=== PATIENT | female | born 1955 | race Caucasian/White ===

== ENCOUNTER 2023-01-06 08:00 | Outpatient (CLI) | payer MEDICARE | END 2023-01-06 23:59 | disposition home or self-care (01) | LOC: LAB 08:00 | PROVIDERS: ATTEND Physician Assistant | DX: L98.9 Disorder of the skin and subcutaneous tissue, unspecified (principal) | CPT/HCPCS: 87070; 87205 ==

== ENCOUNTER 2023-02-27 15:08 | Outpatient (CLI) | payer MEDICARE | END 2023-02-27 15:09 | disposition critical access hospital (66) | LOC: EMS 15:08 | DX: R42 Dizziness and giddiness (principal); R11.2 Nausea with vomiting, unspecified | CPT/HCPCS: A0425; A0429 ==

== ENCOUNTER 2023-02-27 15:48 | Emergency (ER) | payer MEDICARE ==
--- NOTE | 2023-02-27 16:09 | ED Physician Documentation ---
History of Present Illness - Stated complaint Stated Complaint: DIZZY - Chief complaint Chief Complaint: Ext Problem - Additonal information Additional information: 67-year-old female presents to the emergency department for evaluation of parrish carrillo. 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 The client had use the restroom so she took that opportunity to also urinate and when she stood up she felt very dizzy and felt as though the world was spinning. She did go to the restroom but felt off. She came back and completed the client encounter. Shortly thereafter she stood up again and began to feel dizzy and lightheaded. She Did have 1 episode of nausea and vomiting. No chest pain or shortness of air. No double vision. No tinnitus. Patient has no history of similar. Denies a history of hypertension or diabetes. Very infrequently smokes and uses cannabis. No known previous history of coronary artery disease or VA or stroke. Review of Systems Constitutional: denies: Fever, Myalgias, Fatigue Eyes: denies: Loss of vision (No double vision) Ears: denies: Loss of hearing, Ear pain, Drainage/discharge, Tinnitus/ringing Nose: reports: Reviewed and negative Cardiac: reports: Reviewed and negative Respiratory: reports: Reviewed and negative GI: reports: Nausea, Vomiting : reports: Reviewed and negative Skin: reports: Reviewed and negative Musculoskeletal: reports: Reviewed and negative PD ED PE NORMAL - General General: Alert and oriented X 3, No acute distress, Well developed/nourished - HEENT HEENT: Atraumatic, Moist mucous membranes, Pharynx benign - Neck Neck: Supple, no meningeal sign, No adenopathy, No JVD - Cardiac Cardiac: RRR, No murmur - Respiratory Respiratory: No respiratory distress, Clear bilaterally - Abdomen Abdomen: Normal bowel sounds, Soft - Back Back: No CVA TTP, No spinal TTP - Derm Derm: Normal color, Warm and dry, No rash - Extremities Extremities: No deformity, No tenderness to palpate, Normal ROM s pain - Neuro Neuro: Alert and oriented X 3, mission manager 2-12 intact, No motor deficit, No sensory deficit, Normal speech, Other (Normal finger-nose, Normal rapid alternating movements. Normal gait. Off balance with heel toe) Eye Opening: Spontaneous Motor: Obeys Commands Verbal: Oriented GCS Score: 15 Results - Vitals Vitals: Vital Signs - 24 hr 02/27/23 02/27/23 02/27/23 15:53 16:06 16:53 Heart Rate 60 Heart Rate [ 70 Sitting] Heart Rate [ 66 Standing] Heart Rate [ 68 Supine] Respiratory 16 Rate Blood Pressure 168/90 H Blood Pressure 161/75 H [Sitting] Blood Pressure 143/89 H [Standing] Blood Pressure 153/83 H [Supine] O2 Saturation 99 Oxygen O2 Source Room air - EKG (time done) 1609 EKG releavant findings:: EKG personally interpreted by author of this note. Relevant findings are: Rate: Rate (enter#) (62) Rhythm: NSR Renick: Other (IVCD) Intervals: Prolonged MN QRS: Poor R wave progression Ischemia: Normal ST segments Compare to prior EKG: Old EKG unavailable Computer interpretation: Agree with computer - Labs Labs: Laboratory Tests 02/27/23 02/27/23 02/27/23 16:15 16:15 16:15 WBC 4.7 L RBC 3.92 L Hgb 12.1 Hct 37.9 MCV 96.7 MCH 30.9 MCHC 31.9 L RDW 12.4 Plt Count 175 MPV 10.2 Neut # (Auto) 3.8 Lymph # (Auto) 0.6 L [place] # (Auto) 0.3 Eos # (Auto) 0.1 Baso # (Auto) 0.0 Absolute Nucleated RBC 0.00 Nucleated RBC % 0.0 PT 10.5 INR 0.9 Sodium 136 Potassium 4.1 Chloride 101 Carbon Dioxide 25 Anion Gap 10.0 BUN 17 Creatinine 0.7 Estimated GFR (MDRD) 84 L Glucose 111 H Calcium 9.1 Total Bilirubin 0.8 AST 26 ALT 12 Alkaline Phosphatase 59 Troponin I High Sens B-Natriuretic Peptide Total Protein 6.8 Albumin 4.1 Globulin 2.7 Albumin/Globulin Ratio 1.5 Lipase 38 02/27/23 02/27/23 16:15 16:15 WBC RBC Hgb Hct MCV MCH MCHC RDW Plt Count MPV Neut # (Auto) Lymph # (Auto) [place] # (Auto) Eos # (Auto) Baso # (Auto) Absolute Nucleated RBC Nucleated RBC % PT INR Sodium Potassium Chloride Carbon Dioxide Anion Gap BUN Creatinine Estimated GFR (MDRD) Glucose Calcium Total Bilirubin AST ALT Alkaline Phosphatase Troponin I High Sens 3.7 B-Natriuretic Peptide 109 H Total Protein Albumin Globulin Albumin/Globulin Ratio Lipase - Rads (name of study) cxr Relevant Findings:: Final report received (Mild diffuse interstitial prominence and suspected very small right pleural effusion may represent an infectious or inflammatory process though early pulmonary edema may have a similar appearance. No focal consolidation seen) angio head Relevant Findings:: Final report received (No CT evidence of acute intracranial abnormalities. No areas of abnormal contrast-enhancement. No hemodynamically significant stenosis or aneurysm is seen in the intracranial circulation) angio neck Relevant Findings:: Final report received (No hemodynamically significant stenosis is seen in bilateral neck arteries) PD Medical Decision Making - ED course Complexity details: reviewed results, re-evaluated patient, considered differential, d/w patient ED course: 67-year-old female who has no pertinent past medical history and takes no prescribed medications presents the emergency department for evaluation of vertigo. She first noticed it when she was completing a Zoom meeting with a client she got up to walk to the bathroom and felt off balance and dizzy. She had no chest pain or shortness of air. She completed the client meeting and shortly thereafter attempted to walk again but stated that she felt dizzy and off balance thus she presents here. On presentation to the emergency department she is alert and oriented. On vital signs I do note a modest hypertension with blood pressure 161/75. No hypoxia. EKG is sinus rhythm without arrhythmia or tacky arrhythmia A-fib noted. I did obtain screening labs that included CBC, PT/INR and electrolytes. Per my interpretation no acute worrisome abnormalities. A troponin was negative as well as a BNP which measured only at 109. Her EKG per my interpretation also showed no acute worrisome ischemic changes. Subsequently a CT angiogram of the head and neck was completed to evaluate for the possibility of vertebrobasilar insufficiency as a cause for the vertigo. CT imaging as interpreted by the radiologist also shows no worrisome stenosis, aneurysm or vertebrobasilar insufficiency. Clinically patient has a nonfocal neurological exam as well as a normal cerebellar exam A chest x-ray is interpreted by the radiologist suggested mild diffuse interstitial prominence and suspected very small right pleural effusion which could be infectious or inflammatory though pulmonary edema was not ruled out. Patient is without any respiratory findings. There is no dyspnea or hypoxia. Unremarkable cardiopulmonary auscultation. Given the negative BNP and lack of exertional symptoms I do not feel that this warrants treatment today as she does not have clinical findings of CHF or cough, fever leukocytosis to suggest pna. I am encouraging the patient to follow closely with her PCP for long-term restratification of cardiovascular health. We discussed the usual emergent return precautions which would include syncope, chest pain, shortness of air, leg swelling or any focal neuro signs. Departure - Departure Disposition: 01 Home, Self Care Clinical Impression: Dizzy Condition: Stable Record reviewed to determine appropriate education?: Yes Instructions: ED Vertigo Unspecified Comments: Brooke viramontes were seen today in the emergency department because you had some dizziness this afternoon while on a Zoom call. We did do screening labs in the emergency department that included a CBC, electrolytes troponin and a lab called BNP. These were all essentially normal. They show no findings to suggest infection or heart failure or heart attack. You do not have any worrisome anemia or electrolyte changes that could have accounted for your symptoms. We did do angiograms of your head and neck to look for aneurysm or stenosis of the arteries that could have contributed to your symptoms and the angiograms were essentially negative. On reevaluation your neurological exam remains normal. Important that you discuss this ED visit with your primary care doctor when you finally meet them. In the short-term if you develop any worsening symptoms such as chest pain, shortness of air, have slurred speech, facial droop or worsening dizziness please return to the ER for repeat evaluation.
[2023-02-27 16:24] LABS: BASOPHILS % (AUTO) 0.6 %; EOSINOPHILS # (AUTO) 0.1 10^3/uL (0.0-0.7); EOSINOPHILS % (AUTO) 1.1 %; HCT - HEMATOCRIT 37.9 % (37.0-47.0); HGB - HEMOGLOBIN 12.1 g/dL (12.0-16.0); LYMPHOCYTES # (AUTO) 0.6 10^3/uL (1.5-3.5); LYMPHOCYTES % (AUTO) 11.9 %; MEAN CORPUSCULAR HEMOGLOBIN 30.9 pg (27.0-31.0); MEAN CORPUSCULAR HGB CONC 31.9 g/dL (32.0-36.0); MEAN CORPUSCULAR VOLUME 96.7 fL (81.0-99.0); MEAN PLATELET VOLUME 10.2 fL (7.9-10.8); MONOCYTES # (AUTO) 0.3 10^3/uL (0.0-1.0); MONOCYTES % (AUTO) 5.9 %; NEUTROPHILS # (AUTO) 3.8 10^3/uL (1.5-6.6); NEUTROPHILS % (AUTO) 80.1 %; PLT - PLATELET COUNT 175 10^3/uL (130-450); RED BLOOD COUNT 3.92 10^6/uL (4.20-5.40); RED CELL DISTRIBUTION WIDTH 12.4 % (12.0-15.0); WHITE BLOOD COUNT 4.7 x10^3/uL (4.8-10.8)
[2023-02-27 16:32] LABS: INR 0.9 (0.8-1.2); PT - PROTHROMBIN TIME 10.5 secs (9.9-12.6)
[2023-02-27 16:35] LABS: ALBUMIN 4.1 g/dL (3.2-5.5); ALBUMIN/GLOBULIN RATIO 1.5 (1.0-2.2); BILIRUBIN,TOTAL 0.8 mg/dL (0.2-1.0); CALCIUM 9.1 mg/dL (8.5-10.3); CREATININE 0.7 mg/dL (0.4-1.0); POTASSIUM 4.1 mmol/L (3.5-5.0); TOTAL PROTEIN 6.8 g/dL (6.7-8.2)
--- NOTE | 2023-02-27 16:35 | XRAY Report ---
PROCEDURE: Chest 1 View X-Ray INDICATIONS: Chest Pain TECHNIQUE: One view of the chest was acquired. COMPARISON: None. FINDINGS: Surgical changes and devices: None. Lungs and pleura: Minimal diffuse interstitial prominence. Mild hazy opacity of the right costophren ic angle and minimal blunting. This may represent a very small pleural effusion. No pneumothorax. No focal consolidation. Mediastinum: Accounting for patient positioning/rotation, minimally prominent right perihilar/paratr acheal density is favored to represent vascular structures. Otherwise, cardiomediastinal contours and heart size are within normal limits. Bones and chest wall: No suspicious bony lesions. Overlying soft tissues appear unremarkable. IMPRESSION: Mild diffuse interstitial prominence and suspected very small right pleural effusion may represent an infectious or inflammatory process although early pulmonary edema may have a similar appearance. No focal consolidation seen. Reviewed by: Jean Pierre Berry MD on 02/27/2023 4:34 PM PDT Approved by: Jean Pierre Berry MD on 02/27/2023 4:34 PM PDT Station ID: [id number]
[2023-02-27] MEDS ORDERED: iohexoL-300 100 ML VIAL ONE (16:36)
--- OUTSIDE RECORDS SUMMARY | 2023-02-27 17:14 | EXTERNAL MEDICAL SUMMARY RPT | Continuity of Care Document ---
Author Name Unknown Address [address] [place] [address] Phone Organization [facility] Address [address] [place] [address] Phone Care Team Providers Care Architectural Job Captain Name Role Phone Unavailable Unavailable Unavailable Dariusz Bolton Md Unavailable Unavailable Allison PaSamantha, Omar Unavailable Unavailable Avery Ramirez, Camille Unavailable Unavailable Graham Patient Registrar, Tamera Unavailable Unavailable Jena Patient Registrar, Torrie Unavailable Unavailable Jena Patient Registrar, Torrie Unavailable Unavailable Juliane, Provider Unavailable Unavailable [place] Stone Mason, Tailynn Unavailable Unavailabl e Medications date description facility 2023-01-06 00:00 [facility]upirocin [facility] 2023-01-06 00:00 [facility]cin [facility] 2023-01-06 00:00 [facility]cin [facility] 2023-01-06 00[facility]00 [facility]cin [facility] 2023-01-06 00:00 [facility]cin [facility] 2023-01-06 00:00 [facility]cin [facility] 2023-01-06 00:00 [facility]cin [facility] 2023-01-06 00:00 doxycycline monohydrate [facility] 2023-01-06 00:00 doxycycline monohydrate [facility] 2023-01-06 00:00 doxycycline monohydrate [facility] 2023-01-06 00:00 doxycycline monohydrate [facility] 2023-01-06 00:00 doxycycline monohydrate [facility] 2023-01-06 00:00 doxycycline monohydrate [facility] 2023-01-06 00:00 doxycycline monohydrate [facility] 2023-01-06 00:00 [facility]irocin [facility] 2023-01-06 00:00 [facility]cin [facility] 2023-01-06 00:00 [facility]cin [facility] 2023-01-06 00:00 [facility]cin [facility] 2023-01-06 00:00 [facility]upirocin [facility] 2023-01-06 00:00 [facility]upirocin [facility] 2023-01-06 00:00 [facility]cin [facility] 2023-01-20 00:00 sulfamethoxazole-trimethoprim [facility] 2023-01-20 00:00 sulfamethoxazole-trimethoprim [facility] 2023-01-20 00:00 sulfamethoxazole-trimethoprim [facility] 2023-01-06 00:00 doxycycline monohydrate [facility] 2023-01-06 00:00 doxycycline monohydrate [facility] 2023-01-06 00:00 doxycycline monohydrate [facility] 2023-01-06 00:00 doxycycline monohydrate [facility] 2023-01-06 00:00 doxycycline monohydrate [facility] 2023-01-06 00:00 doxycycline monohydrate [facility] 2023-01-06 00:00 doxycycline monohydrate [facility] 2023-01-20 00:00 sulfamethoxazole-trimethoprim [facility] 2023-01-20 00:00 sulfamethoxazole-trimethoprim [facility] 2023-01-20 00:00 sulfamethoxazole-trimethoprim [facility] 2023-01-20 00:00 sulfamethoxazole-trimethoprim [facility] 2023-01-20 00:00 sulfamethoxazole-trimethoprim [facility] 2023-01-20 00:00 sulfamethoxazole-trimethoprim [facility] 2023-01-06 00:00 doxycycline monohydrate [facility] 2023-01-06 00:00 doxycycline monohydrate [facility] 2023-01-06 00:00 doxycycline monohydrate [facility] 2023-01-06 00:00 doxycycline monohydrate [facility] 2023-01-06 00:00 doxycycline monohydrate [facility] 2023-01-06 00:00 doxycycline monohydrate [facility] 2023-01-06 00:00 doxycycline monohydrate [facility] 2023-01-06 00:00 [facility]upirocin [facility] 2023-01-06 00:00 [facility]upirocin [facility] 2023-01-06 00:00 [facility]upirocin [facility] 2023-01-06 00:00 [facility]cin [facility] 2023-01-06 00:00 [facility]upirocin [facility] 2023-01-06 00:00 [facility]cin [facility] 2023-01-06 00:00 [facility]cin [facility] 2023-01-06 00:00 doxycycline monohydrate [facility] 2023-01-06 00:00 doxycycline monohydrate [facility] 2023-01-06 00:00 doxycycline monohydrate [facility] 2023-01-06 00:00 doxycycline monohydrate [facility] 2023-01-06 00:00 doxycycline monohydrate [facility] 2023-01-06 00:00 doxycycline monohydrate [facility] 2023-01-06 00:00 doxycycline monohydrate [facility] 2023-01-20 00:00 sulfamethoxazole-trimethoprim [facility] 2023-01-20 00:00 sulfamethoxazole-trimethoprim [facility] 2023-01-20 00:00 sulfamethoxazole-trimethoprim [facility] 2023-01-06 00:00 [facility]upirocin [facility] 2023-01-06 00:00 [facility]up[facility]cin [facility] 2023-01-06 00:00 [facility]up[facility]cin [facility] 2023-01-06 00:00 [facility]cin [facility] 2023-01-06 00:00 [facility] 2023-01-06 00:00 [facility]cin [facility] 2023-01-06 00:00 [facility]upirocin [facility] Problems date description facility 2023-01-06 00:00 No current problems or disability - unknown [facility] 2023-01-06 00:00 Unspecified disorder of skin and subcutaneous tissue [facility] 2023-01-06 00:00 Unspecified disorder of skin and subcutaneous tissue [facility] 2023-01-06 00:00 Unspecified disorder of skin and subcutaneous tissue [facility] 2023-01-06 00:00 Unspecified disorder of skin and subcutaneous tissue [facility] 2023-01-06 00:00 Unspecified disorder of skin and subcutaneous tissue [facility] 2023-01-06 00:00 Unspecified disorder of skin and subcutaneous tissue [facility] 2023-01-06 00:00 Unspecified disorder of skin and subcutaneous tissue [facility] 2023-01-06 00:00 Skin lesion [facility] 2023-01-06 00:00 Skin lesion [facility] 2023-01-06 00:00 Skin lesion [facility] 2023-01-06 00:00 Skin lesion [facility] 2023-01-06 00:00 Skin lesion [facility] 2023-01-06 00:00 Skin lesion [facility] 2023-01-06 00:00 Skin lesion [facility] 2023-01-06 00:00 Disorder of the skin and subcutaneous tissue, unspecified [facility] 2023-01-06 00:00 Disorder of the skin and subcutaneous tissue, unspecified [facility] 2023-01-06 00:00 Disorder of the skin and subcutaneous tissue, unspecified [facility] 2023-01-06 00:00 Disorder of the skin and subcutaneous tissue, unspecified [facility] 2023-01-06 00:00 Disorder of the skin and subcutaneous tissue, unspecified [facility] 2023-01-06 00:00 Disorder of the skin and subcutaneous tissue, unspecified [facility] 2023-01-06 00:00 Disorder of the skin and subcutaneous tissue, unspecified [facility] Procedures date description facility 2023-01-06 00:00 Visit Code Hold [facility] 2023-01-06 00:00 Visit Code Hold [facility] 2023-01-06 00:00 Visit Code Hold [facility] 2023-01-06 00:00 Visit Code Hold [facility] 2023-01-06 00:00 Visit Code Hold [facility] 2023-01-06 00:00 Visit Code Hold [facility] 2023-01-06 00:00 Visit Code Hold [facility] 2023-01-20 00:00 Visit Code Hold [facility] 2023-01-20 00:00 Visit Code Hold [facility] 2023-01-20 00:00 Visit Code Hold [facility] Social History date description facility 2023-01-06 00:00 Never smoker [facility] 2023-01-06 00:00 Never smoker [facility] 2023-01-06 00:00 Never smoker [facility] 2023-01-06 00:00 Never smoker [facility] 2023-01-06 00:00 Never smoker [facility] 2023-01-06 00:00 Never smoker [facility] 2023-01-06 00:00 Never smoker [facility] 2023-01-06 00:00 Unknown if ever smoked [facility] 2023-01-20 00:00 Never smoker [facility] 2023-01-20 00:00 Never smoker [facility] 2023-01-20 00:00 Never smoker [facility] Vital Signs date measurement value units 2023-01-06 00:00 BMI 30.67 kg/m2 2023-01-06 00:00 BP_diastolic 75 mmHg 2023-01-06 00:00 BP_systolic 130 mmHg 2023-01-06 00:00 heart_rate 60 /min 2023-01-06 00:00 height_metric 177.8 cm 2023-01-06 00:00 height_standard 70 in 2023-01-06 00:00 respiration_rate 14 /min 2023-01-06 00:00 temperature_metric 36.83 C 2023-01-06 00:00 temperature_standard 98.3 F 2023-01-06 00:00 weight_metric 96.62 kg 2023-01-06 00:00 weight_standard 213 lb 2023-01-20 00:00 BMI 30.67 kg/m2 2023-01-20 00:00 BP_diastolic 74 mmHg 2023-01-20 00:00 BP_systolic 125 mmHg 2023-01-20 00:00 heart_rate 68 /min 2023-01-20 00:00 height_metric 177.8 cm 2023-01-20 00:00 height_standard 70 in 2023-01-20 00:00 respiration_rate 16 /min 2023-01-20 00:00 temperature_metric 36.5 C 2023-01-20 00:00 temperature_standard 97.7 F 2023-01-20 00:00 weight_metric 96.62 kg 2023-01-20 00:00 weight_standard 213 lb
--- NOTE | 2023-02-27 17:47 | CT Report ---
PROCEDURE: ANGIO NECK W INDICATIONS: dizziness CONTRAST: 80mL Omni 300 TECHNIQUE: After the administration of intravenous contrast, 1.5 mm axial sections acquired from the aortic arch to the [place] of [place]. Coronal 3-D maximum intensity projection (MIP) and/or volume rendering ref ormats were then performed. For radiation dose reduction, the following was used: automated exposur e control, adjustment of mA and/or kV according to patient size. COMPARISON: None. FINDINGS: Image quality: Excellent. Carotid system: The great vessels demonstrate a conventional anatomy as they arise from the aortic a rch. The origins of the common carotid arteries appear patent. The common carotid arteries demonstr ate normal calibers and courses. The bifurcation regions appear normal bilaterally. The internal ca rotid arteries demonstrate normal caliber and course. Posterior circulation: The origins of the vertebral arteries appear patent. The more superior porti ons of the vertebral arteries demonstrate normal course and caliber. They join to form a normal appe aring basilar artery. Soft tissues: Visualized neck soft tissues demonstrate no suspicious abnormalities. The thyroid is normal in size and there are no incidental findings. Bones: No suspicious bony lesions. Visualized cervical spine appears normally aligned. IMPRESSION: 1. No hemodynamically significant stenosis is seen in bilateral neck arteries. The estimate of stenosis included in the report of the imaging study was calculated using the NASCET method CLINICAL RECOMMENDATION STATEMENTS: In patients <35 years with an ITN detected on CT, MRI, or extrathyroidal ultrasound, the Committee re commends further evaluation with dedicated thyroid ultrasound if the nodule is "e1 cm and has no susp icious imaging features, and if the patient has normal life expectancy. In patients "e35 years with an ITN detected on CT, MRI, or extrathyroidal ultrasound, the Committee r ecommends further evaluation with dedicated thyroid ultrasound if the nodule is "e1.5 cm and has no s uspicious imaging features, and if the patient has normal life expectancy. (ACR, 2014) Reviewed by: Hugo Lau MD on 02/27/2023 4:46 PM AKDT Approved by: Hugo Lau MD on 02/27/2023 4:46 PM AKDT Station ID: [id number]
--- NOTE | 2023-02-27 17:48 | CT Report ---
PROCEDURE: ANGIO HEAD W/WO INDICATIONS: dizziness CONTRAST: 80mL Omni 300 TECHNIQUE: Precontrast 4.5 mm thick angled axial sections acquired from the foramen magnum to the vertex. Afte r the administration of intravenous contrast, 1 mm thick sections acquired through the [place] of [place] is. Postcontrast 4.5 mm thick sections then re-acquired from the foramen magnum to the vertex. 3-di mensional ybtanxl-nswnnjyvp-evfvmgtpcw (MIP) and/or volume rendering reformats were acquired of the c entral intracranial vasculature. For radiation dose reduction, the following was used: automated ex posure control, adjustment of mA and/or kV according to patient size. COMPARISON: None. FINDINGS: Image quality: Excellent. Anterior circulation: Intracranial internal carotid arteries are normal in size and flow. The flow within the paired anterior cerebral arteries is normal and symmetric. The flow within the middle cer ebral arteries is normal and symmetric. The anterior communicating artery is seen. No aneurysms are seen. Posterior circulation: Visualized portions of the vertebral arteries demonstrate normal caliber, and join to form a normal appearing basilar artery. Flow within the posterior cerebral arteries is norm al and symmetric. No aneurysms are seen. CSF spaces: Ventricles are normal in size and shape. Basal cisterns are patent. No extra-axial flu id collections. Brain: No midline shift. No intracranial bleeds or masses. [place]-white matter interface appears int act. No area of abnormal intracranial enhancement is noted. Skull and face: Calvarium and facial bones appear intact, without suspicious lesions. Sinuses: Visualized sinuses and mastoids are clear. IMPRESSION: 1. No CT evidence of acute intracranial abnormalities. No area of abnormal contrast enhancement. 2. No hemodynamically significant stenosis or aneurysm is seen in the intracranial circulation. Reviewed by: Hugo Lau MD on 02/27/2023 4:47 PM AKDT Approved by: Hugo Lau MD on 02/27/2023 4:47 PM AKDT Station ID: [id number]
[2023-02-27 18:28] VITALS: BP 135/81
[2023-02-27] MEDS ORDERED: iohexoL-300 100 ML VIAL IVP ONE (18:28)
[2023-02-27 19:36] LABS: B. PARAPERTUSSIS- RESP PCR PAN NOT DETECTED; B. PERTUSSIS- RESP PCR PANEL NOT DETECTED; C. PNEUMONIAE- RESP PCR PANEL NOT DETECTED; CORONAVIRUS 229E-RESP PCR NOT DETECTED; CORONAVIRUS HKU1-RESP PCR NOT DETECTED; CORONAVIRUS NL63-RESP PCR NOT DETECTED; CORONAVIRUS OC43-RESP PCR NOT DETECTED; HUMAN METAPNEUMOVIRUS NOT DETECTED; INFLUENZA A- RESP PCR PANEL NOT DETECTED; INFLUENZA B - RESP PCR PANEL NOT DETECTED; M. PNEUMONIAE- RESP PCR PANEL NOT DETECTED; PARAINFLUENZA VIRUS 1 NOT DETECTED; PARAINFLUENZA VIRUS 2 NOT DETECTED; PARAINFLUENZA VIRUS 3 NOT DETECTED; PARAINFLUENZA VIRUS 4 NOT DETECTED; RHINOVIRUS/ENTEROVIRUS NOT DETECTED; RSV- RESP PCR PANEL NOT DETECTED; SARS-CoV-2 -RESP PCR PANEL NOT DETECTED
== END 2023-02-27 18:35 | disposition home or self-care (01) ==
LOC: EDUNIT# → ED 15:48
DX: R42 Dizziness and giddiness (principal); Z20.822 Contact with and (suspected) exposure to COVID-19
CPT/HCPCS: 36415; 70496; 70498; 71045; 80053; 83690; 83880; 84484; 85025; 85610; 87633; 93005; 99283; 99284; Q9967

== ENCOUNTER 2023-04-25 07:20 | Outpatient (CLI) | payer MEDICARE ==
[2023-04-25 15:08] LABS: BASOPHILS # (AUTO) 0.1 10^3/uL (0.0-0.1); BASOPHILS % (AUTO) 1.2 %; EOSINOPHILS # (AUTO) 0.3 10^3/uL (0.0-0.7); EOSINOPHILS % (AUTO) 6.9 %; HCT - HEMATOCRIT 38.8 % (37.0-47.0); LYMPHOCYTES # (AUTO) 1.4 10^3/uL (1.5-3.5); LYMPHOCYTES % (AUTO) 34.7 %; MEAN CORPUSCULAR HEMOGLOBIN 30.5 pg (27.0-31.0); MEAN CORPUSCULAR HGB CONC 30.9 g/dL (32.0-36.0); MEAN CORPUSCULAR VOLUME 98.7 fL (81.0-99.0); MEAN PLATELET VOLUME 11.1 fL (7.9-10.8); MONOCYTES # (AUTO) 0.4 10^3/uL (0.0-1.0); MONOCYTES % (AUTO) 10.9 %; NEUTROPHILS # (AUTO) 1.9 10^3/uL (1.5-6.6); NEUTROPHILS % (AUTO) 46.1 %; PLT - PLATELET COUNT 183 10^3/uL (130-450); RED BLOOD COUNT 3.93 10^6/uL (4.20-5.40); RED CELL DISTRIBUTION WIDTH 12.6 % (12.0-15.0)
[2023-04-25 15:38] LABS: ALBUMIN 3.8 g/dL (3.2-5.5); ALBUMIN/GLOBULIN RATIO 1.5 (1.0-2.2); ALKALINE PHOSPHATASE 47 IU/L (42-121); ALT ALANINE AMINOTRANSFERASE 11 IU/L (10-60); AST ASPARTATE AMINOTRANSFERASE 17 IU/L (10-42); BILIRUBIN,TOTAL 0.8 mg/dL (0.2-1.0); BUN - BLOOD UREA NITROGEN 28 mg/dL (6-20); CALCIUM 9.3 mg/dL (8.5-10.3); CARBON DIOXIDE - CO2 28 mmol/L (21-32); CHLORIDE 105 mmol/L (101-111); CHOL/HDL RATIO 2.1 (<4.4); CHOLESTEROL 220 mg/dL; CREATININE 0.8 mg/dL (0.4-1.0); GFR - MDRD 72 (>89); GLUCOSE 101 mg/dL (70-100); HDL CHOLESTEROL 103 mg/dL; LDL CHOLESTEROL,CALCULATED 109 mg/dL; LDL/HDL RATIO 1.1 (<4.4); POTASSIUM 4.1 mmol/L (3.5-5.0); SODIUM 140 mmol/L (135-145); TOTAL PROTEIN 6.4 g/dL (6.7-8.2); TRIGLYCERIDES 40 mg/dL; VLDL CHOLESTEROL 8 mg/dL
[2023-04-25 20:28] LABS: ESTIMATED AVERAGE GLUCOSE 117 mg/dL (70-100); HEMOGLOBIN A1c% 5.7 % (4.27-6.07)
[2023-04-26 15:09] LABS: HCV AB Non Reactive (Non Reactive)
== END 2023-04-25 07:21 | disposition home or self-care (01) ==
LOC: LAB.S 07:20
PROVIDERS: ATTEND Internal Medicine
DX: L30.9 Dermatitis, unspecified (principal); Z83.3 Family history of diabetes mellitus; L92.1 Necrobiosis lipoidica, not elsewhere classified; J90 Pleural effusion, not elsewhere classified; R21 Rash and other nonspecific skin eruption; J45.909 Unspecified asthma, uncomplicated; Z11.59 Encounter for screening for other viral diseases; R42 Dizziness and giddiness
CPT/HCPCS: 36415; 80053; 80061; 83036; 83721; 84443; 85025; 86803; 87522

== ENCOUNTER 2023-06-13 07:20 | Outpatient (CLI) | payer MEDICARE ==
--- NOTE | 2023-06-13 10:19 | XRAY Report ---
PROCEDURE: Chest 2 View X-Ray INDICATIONS: ABNORMAL CHEST XRAY TECHNIQUE: 2 views of the chest were acquired. COMPARISON: 02/27/2023. FINDINGS: Surgical changes and devices: None. Lungs and pleura: No pleural effusions or pneumothorax. Linear scarring/atelectasis at right lung ba se is seen. No definite focal infiltrate. Mediastinum: Mediastinal contours appear normal. Heart size is normal. Bones and chest wall: No suspicious bony lesions. Overlying soft tissues appear unremarkable. IMPRESSION: Linear scarring/atelectasis at right lung base. No focal infiltrate, pleural effusion or pneumothorax. Reviewed by: Hugo Lau MD on 06/13/2023 10:17 AM PDT Approved by: Hugo Lau MD on 06/13/2023 10:17 AM PDT Station ID: [id number]
== END 2023-06-13 07:21 | disposition home or self-care (01) ==
LOC: DI.S 07:20
PROVIDERS: ATTEND Internal Medicine
DX: J98.4 Other disorders of lung (principal); J98.11 Atelectasis